=== PATIENT | female | born 1965 | race Caucasian/White ===

== ENCOUNTER → 2018-04-13 16:03 | Outpatient (CLI) | payer BC, SELFPAY ==
--- NOTE | 2018-04-13 | EMB_PTH ---
PATIENT: SANDRO QUINN LOC: [facility] U#:[id number] AGE/SX: 59/F ROOM: RE04/13/[address]: ALANNA Paulino : 1965 BED: DIS: SPEC #: [id number] RECD: 04/13/18 16:03 STATUS: KATIA CHAYITO #: [id number] SHONDA: 04/13/18 00:[address]: Oxana Goodman NP DEPT: SURGICAL PATHOLOGY RECD BY: Klaus Oscar Tissues: Endometrium, NOS Procedures: Surgery Specimen Level IV HEADER OPERATION: Endometrial biopsy PRE-OP DIAGNOSIS: Abnormal uterine bladder TISSUE SUBMITTED: Endometrial biopsy MICROSCOPIC DIAGNOSIS Endometrial biopsy: Simple and focal complex hyperplasia without atypia. PRADEEP:refugio 04/15/18 MICROSCOPIC DESCRIPTION Slides are reviewed. GROSS DESCRIPTION Received is one container labeled with the patient's name and not further designated. The specimen consists of multiple fragments of pink hemorrhagic soft tissue mixed with mucoid tissue that in aggregate measure 2.5 x 2 x 0.2 cm. The specimen is totally submitted in one cassette. / SJ:rg 04/14/18 TC:5 CPT: 99862
== END ==
PROVIDERS: Visit Provider Nurse Practitioner Women's Health
DX: N93.9 Abnormal uterine and vaginal bleeding, unspecified (principal)
CPT/HCPCS: 88305

== ENCOUNTER → 2018-04-24 12:02 | Outpatient (CLI) | payer BC, SELFPAY ==
--- NOTE | 2018-04-24 12:08 | US_ITS ---
STUDY: ULTRASOUND OF THE FEMALE PELVIS - COMPLETE REASON FOR EXAM: Female, 52 years old. Irregular menses. LMP: TECHNIQUE: Transabdominal and Transvaginal TECHNICAL QUALITY: Adequate. COMPARISON: None. FINDINGS: The uterus is anteverted and is in a midline position. The uterus measures 9.7 x 5.4 x 4.7 cm. There is a Nabothian cyst of the cervix. The endometrium measures 14.9 mm in thickness, and is hyperechoic. There is a 3 x 6 x 4 mm lobular anechoic focus within the endometrial cavity at the level the uterine fundus. There is no demonstrated myometrial mass. The right ovary is non-visualized. The left ovary is non-visualized. There is no fluid in the cul-de-sac. US/Transvaginal Non- IMPRESSION: Thickened endometrial stripe. Indeterminate anechoic focus within the endometrial cavity, may reflect underlying focal fluid or a cyst. Nonvisualization of the ovaries. Electronically Signed: Brittany Bah MD at 18:18 EST Tel , Service support ,
--- NOTE | 2018-04-24 12:08 | US_ITS ---
STUDY: ULTRASOUND OF THE FEMALE PELVIS - COMPLETE REASON FOR EXAM: Female, 52 years old. Irregular menses. LMP: TECHNIQUE: Transabdominal and Transvaginal TECHNICAL QUALITY: Adequate. COMPARISON: None. FINDINGS: The uterus is anteverted and is in a midline position. The uterus measures 9.7 x 5.4 x 4.7 cm. There is a Nabothian cyst of the cervix. The endometrium measures 14.9 mm in thickness, and is hyperechoic. There is a 3 x 6 x 4 mm lobular anechoic focus within the endometrial cavity at the level the uterine fundus. There is no demonstrated myometrial mass. The right ovary is non-visualized. The left ovary is non-visualized. There is no fluid in the cul-de-sac. US/Pelvic (Non ) IMPRESSION: Thickened endometrial stripe. Indeterminate anechoic focus within the endometrial cavity, may reflect underlying focal fluid or a cyst. Nonvisualization of the ovaries. Electronically Signed: Brittany Bah MD at 18:18 EST Tel , Service support ,
== END ==
PROVIDERS: Referring Provider Nurse Practitioner Women's Health; Visit Provider Nurse Practitioner Women's Health
DX: N93.9 Abnormal uterine and vaginal bleeding, unspecified (principal)
CPT/HCPCS: 76830; 76856

== ENCOUNTER 2018-07-16 09:34 | Day surgery (SDC) | payer BC, SELFPAY ==
[2018-07-09 12:43] VITALS: BMI 47.7
--- NOTE | 2018-07-14 17:20 | EKG12_ITS ---
Test Reason : Blood Pressure : / mmHG Vent. Rate : 088 BPM Atrial Rate : 088 BPM P-R Int : 186 ms QRS Dur : 086 ms QT Int : 386 ms P-R-T Axes : 067 042 050 degrees QTc Int : 467 ms Normal sinus rhythm Possible Left atrial enlargement Borderline ECG Confirmed by CESAR GALLEGOS, DEUCE ([id number]), telegraph editor HALEY DAMON ([id number]) on 07/16/2018 8:25:21 AM Referred By: Vannessa Cortes Confirmed By:DEUCE GUERRERO MD
[2018-07-14 17:49] LABS: Internal QC Validated? YES +Cl - CLEAR BKGD; Pregnancy, Urine Negative Negative
[2018-07-14 17:59] LABS: Absolute Lymphocyte Count 2.85 X10^3/ul (0.83-4.51); Basophil# 0.04 X10^3/uL; Basophil% 0.3 % (0-1); Eosinophil# 0.21 X10^3/uL; Eosinophils% 1.6 % (0-5); Hematocrit 46.1 % (37-47); Hemoglobin 14.9 g/dl (12.0-15.0); Lymphocyte # 2.85 X10^3/ul (4.0); Lymphocyte % 21.6 % (19-41); Mean Corp Hgb Conc 32.3 g/gl (32-36); Mean Corpuscular Hgb 29.6 pg (27.0-32.0); Mean Corpuscular Volume 91.7 fL (81-99); Mean Platelet Vol. 10.9 fl (6.2-12.0); Monocyte# 1.04 X10^3/uL; Monocyte% 7.9 % (0-10); Neutrophil # 9.02 X10^3/uL (2.7-7.7); Neutrophil % 68.4 % (47-70); Platelet Count 265 K/mm3 (150-450); RBC Distribution Width CV 13.2 % (11.6-14.6); RBC Distribution Width SD 43.7 fl (35.1-43.9); Red Blood Count 5.03 M/mm3 (4.2-5.4); White Blood Count 13.2 K/mm3 (4.4-11.0)
[2018-07-14 18:00] LABS: POSITIVE COUNT NO; POSITIVE DIFFERENTIAL NO; POSITIVE MORPHOLOGY NO
--- NOTE | 2018-07-15 20:32 | PCM.HPOB.BLA ---
- Problem List (1) Complex endometrial hyperplasia without atypia Status: Acute Comment: plan TVHBS (2) Asthma Status: Chronic History and Physical Date of Admission: 07/16/18 Intake Vital Signs 07/09/18 Body Mass Index (BMI) 47.7 07/09/18 Height 5 ft 5.5 in 07/09/18 Weight: 292 lb 07/09/18 Body Mass Index (BMI) 47.8 07/09/18 Blood Pressure 154/100 H Intake Visit Reasons: Pre- Op Supervisor Firearms Required: No Is patient in pain?: No Allergies amoxicillin [From Augmentin] Allergy (Mild, Verified 07/09/18 12:35) diarrhea clavulanic acid [From Augmentin] Allergy (Mild, Verified 07/09/18 12:35) diarrhea Penicillins Allergy (Unknown, Verified 07/09/18 12:35) family history Sulfa (Sulfonamide Antibiotics) Allergy (Unknown, Verified 07/09/18 12:35) family history erythromycin base Adverse Reaction (Verified 07/09/18 12:35) Upset Stomach omeprazole [From Prilosec] Adverse Reaction (Verified 07/09/18 12:35) Chest tightness Medications Naproxen [Naprosyn] 500 mg PO BID PRN #20 tab 06/30/17 [Rx Confirmed 07/09/18] albuterol sulfate HFA 90 mcg/actuation aerosol inhaler 2 puff INHALATION Q6H PRN 04/13/18 [History Confirmed 07/09/18] fluticasone 50 mcg/actuation nasal spray,suspension 2 spray INTRANASAL DAILY PRN 04/13/18 [History Confirmed 07/09/18] ibuprofen 200 mg capsule 200 mg PO TID-QID PRN 04/13/18 [History Confirmed 07/09/18] ranitidine 150 mg tablet 150 mg PO DAILY 04/13/18 [History Confirmed 07/09/18] calcium carbonate 300 mg (750 mg) chewable tablet 300 mg PO BID PRN tab 07/09/18 [History Confirmed 07/09/18] dicyclomine 10 mg capsule 10 mg PO ONCE PRN 07/09/18 [History Confirmed 07/09/18] Post menopausal: No Patient : No : No PFSH Medical History Asthma (Chronic) Abnormal Pap smear of cervix (Acute) Fatty liver (Acute) Surgical History S/P cholecystectomy (Resolved) left ankle surgery (Resolved) tooth extracted (Resolved) Family History Mother Uterine cancer Diabetes Hypertension Grandmother Esophageal cancer CVA (cerebral vascular accident) Social History Smoking Status: Never smoker alcohol intake: current alcohol intake frequency: holidays/special occasions only substance use type: does not use caffeine: Yes what type of physical activity do you participate in: none seatbelt use: always do you feel safe at home: Yes additional social history: -garment cutter HPI Pre- Op: Details: SANDRO QUINN is a 52 year old who presents for preop discussion. she has complex hyperplasia without atypia and having irregular bleeding. she has feelings of anxiety about surgery and wanted some last questions answered. she doesn't want to be treated with hormones. Pregancy History 2 Elective abortions Hx Para 2 Spontaneous abortions Hx # Term Pregnancies Ectopic pregnancies Hx # Pregnancies Multiple births # of living children Past Pregnancies Del. Date Name GA/Weeks Outcome Route Bth Weight [facility] Rocio[facility] Unknown Luke-1985 ROS Const Constitutional: Denies poor appetite, headache(s), fever(s), increased appetite, weight gain, weight loss or fatigue Cardio Card: Denies chest pain Resp Resp: Denies dyspnea or cough GI GI: Reports as per HPI; denies vomiting, nausea, abdominal pain or constipation : Reports as per HPI; denies urinary urgency, vaginal discharge, urinary frequency, vaginal itching, vaginal odor, vaginal dryness, urinary incontinence, urinary hesitancy, difficulty urinating, painful urination or nipple discharge Skin Skin/Breast: Denies breast lump, breast pain, breast skin changes, nipple discharge or change in hair Exam Const General: cooperative, healthy appearing, comfortable, no acute distress, well developed Nutritional Appearance: average body habitus Orientation: alert HENND Head: normal to inspection, normocephalic Neck Neck: normal visual inspection, trachea midline Thyroid: thyroid normal Resp Effort & Inspection: normal respiratory effort GI Inspection: normal to inspection, non-distended Palpation: soft, no hepatosplenomegaly General: bladder normal to palpation External Female Exam: normal external appearance, normal appearance of the urethra Urethra: normal appearance of the urethra, normal palpation, no discharge Speculum Exam - Vagina: normal appearance of the vagina, normal vaginal discharge Speculum Exam - Cervix: normal appearance of the cervix, nontender Bimanual Exam- Vagina & Uterus: bladder normal to palpation, No cervical tenderness, normal bimanual exam, uterine size normal, uterine shape normal, uterine mobility normal, uterine consistency normal, normal cervical palpation, uterus non-tender Bimanual Exam- Adnexa, other: normal adnexae, adnexae mobile, no adnexal masses, pelvic support normal Pelvic Support: normal Skin General: no rashes or lesions noted Assessment & Plan Problems 1. Complex endometrial hyperplasia without atypia N85.01 plan TVHBS Plan discussed surgical risks including risks of anesthesia, infection, bleeding, injury to bowel, bladder or blood vessels, and patient wishes to proceed with surgery. Medications New: dicyclomine 10 mg PO ONCE PRN calcium carbonate (Tums Extra Strength Smoothies) 300 mg PO BID PRN Coding Level of Care Code No Charge Diagnoses Complex endometrial hyperplasia without atypia N85.01 UPDATE- I have seen the patient and performed any clinically relevant updates to the history and physical exam. Vannessa Cortes MD
[2018-07-16] VITALS (11 sets, daily range): BP systolic 112–145; BP diastolic 57–89; PULSE 57–86; RESP 14–18; TEMP 35.9–37.1; O2SAT 93–100; BMI 47.2; BMI 47.4
[2018-07-16 10:02] LABS: Internal QC Validated? YES +Cl - CLEAR BKGD; Pregnancy, Urine Negative Negative
[2018-07-16] MEDS: Phenazopyridine 95 MG Tablet 190 MG PO (10:18)
--- NOTE | 2018-07-16 11:35 | HYST_PTH ---
PATIENT: SANDRO QUINN LOC: [facility] [place] U#:[id number] AGE/SX: 52/F ROOM: RE07/16/[address]: Dr. Vannessa Cortes MD : 1965 BED: DIS: 07/17/2018 SPEC #: [id number] RECD: 07/16/18 14:51 STATUS: KATIA CHAYITO #: [id number] SHONDA: 07/16/18 11:[address]: Vannessa Cortes DEPT: SURGICAL PATHOLOGY RECD BY: Klaus Oscar ENTERED: 07/17/18 09:06 SP TYPE: HYSTERECT OTHR DR: Out of Town Doctor Tissues: Uterus, NOS Procedures: Surgery Specimen Level V HEADER OPERATION: Hysterectomy, vaginal, bilateral salpingectomy PRE-OP DIAGNOSIS: Complex endometrial hyperplasia without atypia TISSUE SUBMITTED: Uterus, bilateral fallopian tubes MICROSCOPIC DIAGNOSIS Uterus, hysterectomy: Cervix - nabothian cysts and mild chronic inflammation. Endometrial polyps - simple and complex hyperplasia with focal atypia. Endometrium - simple and focal complex hyperplasia with focal atypia. Right and left fallopian tubes - no pathologic change. AM:refugio 07/20/18 COMMENT Case has been reviewed in consultation with Dr. Lopez who concurs with the above diagnosis. IDC:SJ MICROSCOPIC DESCRIPTION Slides are reviewed. GROSS DESCRIPTION Received in fixative is one container labeled with the patient's name and designated uterus. The specimen consists of a uterus with attached cervix, attached right fallopian tube and detached left fallopian tube. The uterus with cervix measures 10 x 5 x 4.5 cm and weighs 138.2 gm. The ectocervix is oval in contour and grossly unremarkable. The endocervical canal measures 3.5 cm in length and is grossly unremarkable. The endometrium is triangular in shape measuring 4 x 3.5 cm. The anterior endometrium contains two fleshy, light pink-red polyps ranging in size from 1 to 4 cm in greatest dimension. The myometrium immediately beneath the polyps is not indurated. The endometrium is light pink in color and measures up to 0.2 cm in thickness. The myometrium measures 2 cm in average thickness and is free of mass lesions. The right and left fallopian tubes are similar in appearance. The right fallopian tube measures 6 cm in length and 0.4 cm in average diameter. A distinct fimbriated end is not identified. The left fallopian tube measures 3 cm in length and 0.5 cm in average diameter and contains a normal appearing fimbriated end. Investigator Welfare sections are submitted in 12 cassettes as follows: 1 - anterior cervix, 2 - posterior cervix, 3 - smaller endometrial polyp, 4 & 5 - larger endometrial polyp, 6 & 7 - entire anterior endometrium with adjacent myometrium, 8-10 - entire posterior endometrium with adjacent myometrium, 11 - right fallopian tube, 12 - left fallopian tube. / AM:refugio 07/17/18 TC:? CPT: 19334
--- NOTE | 2018-07-16 12:45 | PCM.OPRPT ---
Problem List (1) Complex endometrial hyperplasia without atypia Status: Acute Comment: plan TVHBS (2) Asthma Status: Chronic Report of Operation Date of Procedure: 07/16/18 Pre-Operative Diagnosis: hyperplasia Post-Operative Diagnosis: same Surgery/Procedure Performed:: tvh bs Description of Surgical Findings:: normal uterus broommaking supervisor: Chelsi Chun Type of Anesthesia:: General Special Medications: none Specimen's removed: Uterus tubes Drains: hayden Estimated Blood Loss (mL): 150 Fluids Replaced: Crystalloid Description of Procedure: Patient was taken to the operating room and was placed under general anesthesia was prepped and draped in normal sterile fashion in the dorsal lithotomy position. Preoperative antibiotics and SCDs and Hayden catheter was placed inside the bladder. Weighted speculum was placed in the vagina and the anterior and posterior lip of the cervix was grasped with 2 Nikos clamps and circumferentially injected with dilute vasopressin. A circumferential incision was made with a scalpel and the posterior cul-de-sac was entered into sharply and a longneck speculum was placed. The anterior cul-de-sac was also dissected down and entered into sharply and the uterosacral ligaments were clamped cut and suture ligated bilaterally followed by the cardinal ligaments which were Clamped cut and suture ligated bilaterally with 0 Monocryl. The uterus serially descended and progressive bites were taken bilaterally up to the level of the utero-ovarian ligament bilaterally which was clamped transected and double ligated with 0 Monocryl suture and 0 Vicryl free tie. Bilateral fallopian tubes and ovaries were well visualized and noted be within normal limits and the bilateral fallopian tubes were transected across the base with a Bridgett clamp and removed and sutured with 0 Vicryl suture. Excellent hemostasis was noted. Posterior peritoneum was reapproximated with 2-0 Vicryl and a modified Quiros stitch was placed through the posterior vaginal cuff and bilateral uterosacral ligaments across the posterior cul-de-sac skimming along to provide apical support to the vagina. The vagina was closed with [id number] 0 Vicryl pop offs including the posterior and anterior peritoneum in the reapproximation. Excellent hemostasis was noted. All instruments removed from the vagina clear urine was noted at the end of the procedure and patient was awoken and taken recovery in stable condition. Grafts/Implants Used: none - Complications no - Admit VTE Documentation VTE Present on Admission: Yes
--- NOTE | 2018-07-16 12:50 | DCINST_ITS ---
Discharge Diet: No Restrictions Discharge Activity: Return to Normal Activity, May Not Drive, May Shower May resume sexual activity in: 6-8 weeks Call your doctor if your incision/area has: Continuous Slow Oozing, Sudden Increased Bleeding, Increased Pain/ Swelling, Increased Redness, Foul Smelling Discharge Call your doctor if you observe: Fever of 101 or Higher, Inability to urinate, Inability to have a bowel movement, Using more than one pad per hour Allergies/Adverse Reactions: Allergies amoxicillin [From Augmentin] Allergy (Mild, Verified 07/14/18 09:08) diarrhea clavulanic acid [From Augmentin] Allergy (Mild, Verified 07/14/18 09:08) diarrhea Penicillins Allergy (Unknown, Verified 07/14/18 09:08) family history Sulfa (Sulfonamide Antibiotics) Allergy (Unknown, Verified 07/14/18 09:08) family history codeine Adverse Reaction (Verified 07/14/18 09:08) Nausea/Vom/Diarrhea erythromycin base Adverse Reaction (Verified 07/14/18 09:08) Upset Stomach omeprazole [From Prilosec] Adverse Reaction (Verified 07/14/18 09:08) Chest tightness Medications to take at Discharge Naproxen [Naprosyn] 500 mg PO BID PRN #20 tab 06/30/17 albuterol sulfate HFA 90 mcg/actuation aerosol inhaler 2 puff INHALATION Q6H PRN 04/13/18 fluticasone 50 mcg/actuation nasal spray,suspension 2 spray INTRANASAL DAILY PRN 04/13/18 ibuprofen 200 mg capsule 200 mg PO TID-QID PRN 04/13/18 ranitidine 150 mg tablet 150 mg PO DAILY 04/13/18 calcium carbonate 300 mg (750 mg) chewable tablet 300 mg PO BID PRN tab 07/09/18 Naproxen [Naprosyn] 250 - 500 mg PO Q8H PRN PRN #30 tablet 07/16/18 Oxycodone HCl/Acetaminophen [Percocet 5-325] 1 - 2 tablet PO Q4H PRN PRN 7 Days #28 tablet 07/16/18 The following prescriptions were given: Oxycodone HCl/Acetaminophen [Percocet 5-325] 1 - 2 tablet PO Q4H PRN PRN 7 Days #28 tablet PRN Reason: Moderate-Severe pain Naproxen [Naprosyn] 250 - 500 mg PO Q8H PRN PRN #30 tablet PRN Reason: MILD PAIN Orders to be completed after discharge: Type & Screen Time Frame: 07/14/18, Facility: [facility], Location: Laboratory 12 Lead EKG [[facility]] Time Frame: 07/14/18, Facility: [facility], Location: Cardiovascular Services CBC W/Diff, Automated Time Frame: 07/14/18, Location: Laboratory Primary Care Physician: [facility] Doctor,Out of [Primary Care Provider] - Test Results: Test results from this visit will be discussed in further detail at your follow- up appointment, if applicable. Please Follow Up With: Vannessa Cortes MD - [phone]
[2018-07-16] MEDS: Lactated Ringers 1,000 ML 125 ML IV ×2 (15:16→21:43)
[2018-07-16] MEDS: oxyCODONE 5 MG Tablet PO ×2 (15:32→21:42)
[2018-07-16] MEDS: Ketorolac 30 MG/ML Syringe IV (17:49)
[2018-07-17] MEDS: Ketorolac 30 MG/ML Syringe IV ×3 (00:33→12:29)
[2018-07-17 02:44] VITALS: BP 108/67; PULSE 58; RESP 14; TEMP 36.9; O2SAT 95
[2018-07-17 06:17] LABS: Hematocrit 37.6 % (37-47); Hemoglobin 12.1 g/dl (12.0-15.0); Mean Corp Hgb Conc 32.2 g/gl (32-36); Mean Corpuscular Hgb 29.4 pg (27.0-32.0); Mean Corpuscular Volume 91.3 fL (81-99); Mean Platelet Vol. 10.8 fl (6.2-12.0); Platelet Count 278 K/mm3 (150-450); RBC Distribution Width CV 13.1 % (11.6-14.6); RBC Distribution Width SD 43.5 fl (35.1-43.9); Red Blood Count 4.12 M/mm3 (4.2-5.4); White Blood Count 17.4 K/mm3 (4.4-11.0)
[2018-07-17 06:20] LABS: Scan Indicated on CBC? Y/N NO
[2018-07-17 06:33] LABS: Creatinine, Serum 0.97 mg/dL (0.55-1.02); EST Glomerular Filtration Rate 64 mL/min (>60); Est Glom Filt Rate - Afr Amer 77 mL/min (>60); Estimated Creatinine Clearance 62.07 ml/min
[2018-07-17 07:52] VITALS: BP 114/68; PULSE 64; RESP 18; TEMP 36.8; O2SAT 97
[2018-07-17] MEDS: Enoxaparin 40 MG/0.4 ML Syringe SC (10:18)
[2018-07-17] MEDS: 0.9% NaCl Peripheral Flush Adult/Peds IV (12:29)
[2018-07-17 13:00] VITALS: BP 116/70; PULSE 66; RESP 18; TEMP 36.9; O2SAT 98
[2018-07-17 14:09] VITALS: BP 116/70; PULSE 66; RESP 18; TEMP 36.9; O2SAT 98
--- NOTE | 2018-07-17 14:09 | PCM.PN.OB ---
Subjective: no CP SOB N V ambulating voiding - Physical Exam General: Alert, Oriented x3 Vital Signs Temp Pulse Resp BP Pulse Ox 98.2 F 64 18 114/68 97 07/17/18 07:52 07/17/18 07:52 07/17/18 07:52 07/17/18 07:52 07/17/18 07:52 Oxygen Flow Rate (L/min) 2 Oxygen Delivery Method Room Air Weight: 294 lb Body Mass Index (BMI) 47.4 Intake and Output for Last 24 Hours 07/15/18 07/16/18 07/17/18 23:59 23:59 23:59 Intake Total 2940 / 2940 1613 / 1613 Output Total 285 / 285 822 / 822 Balance 2655 / 2655 791 / 791 Laboratory Tests Past 24 Hrs 07/17/18 07/17/18 05:36 05:36 WBC 17.4 H RBC 4.12 L Hgb 12.1 Hct 37.6 MCV 91.3 MCH 29.4 MCHC 32.2 RDW 13.1 RDW Differential 43.5 Plt Count 278 MPV 10.8 Creatinine 0.97 Estim Creat Clear Calc 62.07 Est GFR (MDRD) Af Amer 77 Est GFR (MDRD) Non-Af 64 Medical Necessity - Tobacco Use Smoking Status: Never smoker Tobacco Use: Non-smoker Assessment/Plan All Active Problems (Last Reviewed 07/09/18 @ 12:32 by Ruba Franco) Complex endometrial hyperplasia without atypia (Acute) doing well no complaints dc home
== END 2018-07-17 14:54 | disposition home or self-care (01) ==
LOC: SDC 09:37 → AC 09:37 → MS3 11:42
PROVIDERS: Anesthesiology; Referring Provider Obstetrics & Gynecology; Visit Provider Obstetrics & Gynecology
PROC: (CPT 58260; principal; 2018-07-16 11:15)
DX: N85.01 Benign endometrial hyperplasia (principal); J45.909 Unspecified asthma, uncomplicated; K21.9 Gastro-esophageal reflux disease without esophagitis
CPT/HCPCS: 58262; 36415; 81025; 82565; 85025; 85027; 86850; 86900; 88307; 93005; J7120; A4216; J2405

== ENCOUNTER → 2018-11-11 07:32 | Outpatient (CLI) | payer BC, SELFPAY ==
[2018-08-03 13:29] VITALS: BMI 47.4
[2018-08-24 09:37] VITALS: BMI 47.4
--- NOTE | 2018-11-11 07:35 | BI_ITS ---
MAMMOGRAPHY - BILATERAL SCREENING REASON FOR EXAM: Female, 53 years old. Routine annual screening examination. PERTINENT HISTORY: Non-contributory. TECHNIQUE: Digital bilateral breast jaswinder (3D mammographic acquisition) in the CC and MLO projections. 2-D mediolateral oblique (MLO) and craniocaudad (CC) views of both breasts were obtained. CAD: Full Field Digital Mammography with Computer Added Detection was performed. COMPARISON: Comparison is made with prior outside examination dated May 18, 2012. FINDINGS: Breast Composition: There are scattered areas of fibroglandular density. There are no dominant masses or suspicious calcifications. No other significant abnormalities are identified. There has been no significant change since the prior study. BI/SCREEN MAMM (CAD) W/JASWINDER BILAT IMPRESSION: Stable bilateral screening mammogram. Yearly follow-up mammogram recommended. (A) ASSESSMENT CATEGORY: BIRADS Category 1: Negative. A letter regarding these results will be sent to the patient by the facility within 30 days. Approximately 10% of breast cancers are not detected by mammography. A normal mammogram should not delay biopsy of a clinically suspicious abnormality. [id number] Electronically Signed: Phuc Santos, at 9:29 EDT , Service support ,
== END ==
PROVIDERS: Referring Provider Obstetrics & Gynecology; Visit Provider Obstetrics & Gynecology
DX: Z12.31 Encounter for screening mammogram for malignant neoplasm of breast (principal)
CPT/HCPCS: 77063; 77067

== ENCOUNTER → 2020-04-03 07:07 | Outpatient (CLI) | payer BC, SELFPAY ==
[2018-08-24 09:37] VITALS: BMI 47.4
--- NOTE | 2020-04-03 07:10 | BI_ITS ---
MAMMOGRAPHY - BILATERAL SCREENING REASON FOR EXAM: Female, 54 years old. Routine annual screening examination. PERTINENT HISTORY: Non-contributory. TECHNIQUE: Digital bilateral breast jaswinder (3D mammographic acquisition) in the CC and MLO projections. 2-D mediolateral oblique (MLO) and craniocaudad (CC) views of both breasts were obtained. CAD: Full Field Digital Mammography with Computer Added Detection was performed. COMPARISON: Comparison is made with prior study dated 11/11/2018. FINDINGS: Breast Composition: There are scattered areas of fibroglandular density. There are no dominant masses or suspicious calcifications. No other significant abnormalities are identified. There has been no significant change since the prior study. BI/SCREEN MAMM (CAD) W/JASWINDER BILAT IMPRESSION: Stable bilateral screening mammogram. Yearly follow-up mammogram recommended. (A) ASSESSMENT CATEGORY: BIRADS Category 1: Negative. A letter regarding these results will be sent to the patient by the facility within 30 days. Approximately 10% of breast cancers are not detected by mammography. A normal mammogram should not delay biopsy of a clinically suspicious abnormality. [id number] Electronically Signed: Phuc Santos, at 9:55 EDT , Service support ,
== END ==
PROVIDERS: PCP Family Medicine; Referring Provider Family Medicine; Visit Provider Family Medicine
DX: Z12.31 Encounter for screening mammogram for malignant neoplasm of breast (principal)
CPT/HCPCS: 77063; 77067